=== PATIENT | male | born 1955 | race Caucasian/White ===

== ENCOUNTER 2017-04-11 13:49 | Inpatient (IN) | payer MEDICARE ==
--- NOTE | ~2017-04-11 | DS ---
Unit #: [id number] #: [id number] Patient: JAMES PEREIRA [id number] [address] [address] [id number] I MR#: [id number] NAME: JAMES PEREIRA ROOM: 242 Age: 62 Sex: M Admission Date: 04/11/2017 : 1955 Discharge Date: 04/14/2017 Attending Physician: Tererll Estevez M.D. Primary Care Physician: Amber Estevez Aprn DISCHARGE SUMMARY DISCHARGE DIAGNOSES Right second digit diabetic foot infection, diabetes, chronic pain, and hypertension. HOSPITAL COURSE The patient is a 62-year-old male admitted 04/21/2017 secondary to a diabetic foot infection. He was seen by the emergency department at [facility]. Apparently, he had been on treatment for a right second toe. Cellulitis that was failing to improve. Given and acute worsening the patient presented to the emergency department and was admitted for IV antibiotics. Cultures were obtained and podiatry consult was placed. The patient underwent MRI of his foot, which revealed cellulitis, but no osteomyelitis. Ultimately sent cultures half grown methicillin-susceptible Staph aureus. The patient's antibiotic regimen, which was vancomycin and Zosyn upon admission. Switched to Rocephin. The patient has been seen by Podiatry and recommended home on oral antibiotics. The patient should follow up with Dr. Duron, in one week. The patient should continue local wound care with antibiotic ointment, as well. DISCHARGE MEDICATIONS Bactroban to the toe topically twice a day, citalopram 20 mg daily, Januvia 50 mg daily, Janumet one p.o. daily, Lasix 40 mg p.o. b.i.d., metolazone 1 mg p.o. weekly, aspirin 81 mg daily, naproxen 500 mg p.o. b.i.d. as needed for [id number] pain, Covert 10/325, one p.o. daily as needed for pain, Methadose 20 mg p.o. five times daily, Prilosec 40 mg daily, potassium chloride 20 mEq daily, Ofev 150 mg daily, Bactrim DS one p.o. b.i.d. x7 days. FOLLOWUP As mentioned above. The patient should follow up Dr. Duron, within one week. Dictated by... Melanie Malik/ruiz TD: 04/19/2017 03:38 Unit #: [id number] #: [id number] Patient: JAMES PEREIRA JOB #: [id number] DISCHARGE SUMMARY Page 1 of 1 X Terrell Estevez MD X DISCHARGE SUMMARY
--- NOTE | ~2017-04-11 | MR59 ---
[facility] A Service of [facility] & [facility] RADIOLOGY TEXT RESULTS PATIENT: JAMES PEREIRA LOCATION: C2A 242-01 : 53 UNIT #: [id number] AGE: [address]: Terrell Estevez MD SEX: M ORDER DR: [id number] [place] [id number] [facility]. [place], [place] [address] [id number] I MR#: [id number] Acc #: [id number] NAME: JAMES PEREIRA. : 1955 SEX: M STUDY DATE/TIME: 04/12/2017 11:36 UNIT: [facility] ROOM: 242 STUDY DESCRIPTION: MR Foot WWo Contrast Rt Attending Physician: Terrell Estevez M.D. Ordering Physician: Alix Wade M.D. Primary Care Physician: Amber Estevez Aprn MRI CENTER REPORT This report is preliminary unless electronic signature is present. EXAM MRI right forefoot without and with IV contrast, 04/12/2017 HISTORY Order states right foot infection. Rule out osteo second toe. History sheet states pain and swelling second toe. Diabetic with a second toe wound, for 1 week. Ulcers on the plantar side of the second toe. Diabetic. Neuropathy. No related reported surgery. FINDINGS There is inflammation with enhancement of the subcutaneous space of the second toe compatible with cellulitis. There is no visible sizable wound; correlate clinically as reportedly a superficial wound is present. There is no evidence of osteomyelitis or septic arthritis. There is no fracture. There is mild arthritic change of the first MTP joint. There is diffuse severe muscle atrophy of the visualized foot most commonly seen in the setting of peripheral neuropathy in a diabetic. There is mild arthritic change of the midfoot dominating at the second and third tarsometatarsal joints and in the navicular-medial cuneiform articulation. IMPRESSION 1. Enhancing cellulitis of the second toe with no sizeable wound. 2. There is no evidence of osteomyelitis, abscess, or septic arthritis. 3. Arthritic changes of the midfoot and forefoot detailed above. 4. Severe diffuse muscle atrophy most likely on the basis of peripheral neuropathy in a diabetic. Dictated by... [facility] A Service of [facility] & [facility] RADIOLOGY TEXT RESULTS PATIENT: JAMES PEREIRA LOCATION: [place] [address] : 53 UNIT #: [id number] AGE: [address]: Terrell Estevez MD SEX: M ORDER DR: Soraida Chavez M.D. THIS IS AN ELECTRONICALLY VERIFIED REPORT Soraida Chavez M.D. at 04/13/2017 1:44 PM GINNY/bobby TD: 04/13/2017 09:38 JOB #: [id number] MRI CENTER REPORT Page 1 of 1 COPY
--- NOTE | ~2017-04-11 | CR127 ---
[facility] A Service of [facility] RADIOLOGY TEXT RESULTS PATIENT: JAMES PEREIRA LOCATION: [facility] 327-01 : 53 UNIT #: [id number] AGE: [address]: Terrell Estevez MD SEX: M ORDER DR: [id number] [place] [id number] I MR#: [id number] Acc #: [id number] NAME: JAMES PEREIRA : 1955 SEX: M STUDY DATE/TIME: 04/11/2017 14:12 UNIT: SEDOF ROOM: [facility] STUDY DESCRIPTION: CR Foot Complete Min 3 View Rt Attending Physician: Ellie Wagner M.D. Ordering Physician: Merry Isbell Primary Care Physician: Amber Estevez Aprn MEDICAL IMAGING REPORT This report is preliminary unless electronic signature is present. EXAM Right foot, 3 views HISTORY Second toe infection x1 week, second toe red, swollen and painful; patient diabetic. FINDINGS Three views of the right foot demonstrates soft tissue swelling about the forefoot and second toe. The second toe is not well profiled but subtle changes in the distal phalanx could reflect early osteomyelitis. No soft tissue gas. No fracture identified. Mild degenerative changes midfoot. Malalignment at the talonavicular joint and navicular cuneiform articulations could reflect early neuropathic change. Mild arthritic changes are also noted first MTP joint. IMPRESSION 1. Soft tissue swelling in the forefoot with focal soft tissue swelling about the second toe. The second toe is not well profiled but subtle change in the distal phalanx of the second toe could reflect early osteomyelitis. 2. Loss of the normal longitudinal arch of the foot with malalignment at the talonavicular joint and navicular cuneiform articulations could reflect early neuropathic arthropathy. Dictated by... Angela Henson M.D. THIS IS AN ELECTRONICALLY VERIFIED REPORT Angela Henson M.D. at 04/12/2017 12:32 PM JMS/psc [facility] A Service of [facility] RADIOLOGY TEXT RESULTS PATIENT: JAMES PEREIRA LOCATION: [facility] 327-01 : 53 UNIT #: [id number] AGE: [address]: Terrell Estevez MD SEX: M ORDER DR: TD: 04/12/2017 01:32 JOB #: [id number] MEDICAL IMAGING REPORT Page 1 of 1
--- NOTE | ~2017-04-11 | HP ---
Unit #: [id number] #: [id number] Patient: JAMES PEREIRA [id number] [address] [address] [id number] I MR#: [id number] NAME: JAMES PEREIRA ROOM: 327 Age: 62 Sex: M Admission Date: 04/11/2017 : 1955 Attending Physician: Ellie Wagner M.D. Primary Care Physician: Amber Estevez Aprn HISTORY AND PHYSICAL CHIEF COMPLAINT Right foot infection. HISTORY OF PRESENT ILLNESS This 62-year-old male with pulmonary fibrosis, COPD, neuropathy, AODM, was transferred from [facility] emergency department for cellulitis of the right foot, rule out osteomyelitis of the distal second toe. Intermittently over the past year the patient has required debridement and antibiotics of the second toe by Dr. Duron for cellulitis and what sounds to be some abscesses. He was last treated with what sounds to be doxycycline three months ago when he required debridement at that time. He was well until two days prior to admission when he developed increasing pain, redness over the second right toe into the right forefoot along with purulent drainage from the right second toe. He went to [facility] emergency department where he was given 900 mg of IV clindamycin, given a total of 60 mEq of potassium for hypokalemia and sent to this facility. A plain x-ray of the right foot shows soft tissue swelling of the right forefoot and second toe with possible osteomyelitis of the distal second toe. Also, evidence of early Charcot joint of the right foot. PAST MEDICAL HISTORY 1. Peripheral neuropathy. 2. AODM x5 months. 3. GERD. 4. Pulmonary fibrosis and COPD on oxygen followed by Dr. Gates. 5. Pulmonary hypertension. 6. Depression. 7. Pedal edema. 8. Chronic pain on methadone. 9. DJD. 10. Forty to fifty percent stenosis of the left carotid artery. 11. Partial bowel resection. 12. Cholecystectomy. 13. Ventral hernia repair. 14. C-spine surgery. SOCIAL HISTORY The patient lives with his , stopped smoking about two years ago, does not drink alcohol. FAMILY HISTORY Unit #: [id number] #: [id number] Patient: JAMES PEREIRA Cancer and heart disease. ALLERGIES Morphine. HOME MEDICATIONS 1. Naprosyn 500 mg t.i.d. 2. Lasix 40 mg b.i.d. 3. Potassium 20 mEq daily. 4. Methadone 20 mg five times a day. 5. [place] 7.5/325 mg daily as needed. 6. Prilosec 40 mg daily. 7. Janumet mg one tablet daily. 8. Celexa 20 mg daily. 9. Zaroxolyn one tablet each week. 10. Celexa 20 mg daily. 11. OFEV 150 mg daily. 12. Aspirin 81 mg daily. REVIEW OF SYSTEMS Notable for pain, swelling, redness of the right foot and second toe, diabetes, neuropathy, acid reflux, COPD, pulmonary fibrosis, depression, pedal edema, chronic pain, DJD, above-mentioned surgeries. All other systems were reviewed and are otherwise negative. PHYSICAL EXAMINATION GENERAL APPEARANCE: A mildly obese, 62-year-old male who currently is in no acute distress. EARLIER VITAL SIGNS: Temperature 98.1. Pulse 93. Respiration 16. Blood pressure 125/60. O2 saturation 94% on three liters of oxygen. HEENT: Eyes: PERRLA. Extraocular movements are intact. Pharynx edentulous. NECK: Supple without adenopathy or thyromegaly. Well-healed scar noted. CHEST: Clear. CARDIAC: Normal S1, S2 without murmur. ABDOMEN: Bowel sounds are present. Multiple well-healed scars. Mild right-sided abdominal tenderness without rebound or guarding. No hepatosplenomegaly. No masses. EXTREMITIES: Cellulitis of the distal right foot including the forefoot and into the right second toe with a superficial open area over the right second toe. Pedal pulse on the right is stronger than the left. NEUROLOGIC: The patient is awake, alert, oriented. Cranial nerves are intact. Equal strength throughout. DIAGNOSTIC STUDIES LABORATORY: Hematocrit 37.1, normal white count and platelet count. SMA-7: Potassium 2.6, chloride 90, CO2 36, glucose 113. IMAGING: X-ray show soft tissue of the right forefoot with some localized swelling of the second toe, rule out osteomyelitis of the distal phalanx. Early Charcot joint. ASSESSMENT 1. Right foot cellulitis, particularly the right toe, which has been recurrent into the right toe, rule out osteomyelitis of the second toe. 2. AODM. 3. Peripheral neuropathy with chronic pain. Unit #: [id number] #: [id number] Patient: JAMES PEREIRA 4. Hypokalemia on Lasix. 5. COPD and pulmonary fibrosis on oxygen and OFEV followed by Dr. Gates. PLAN 1. Vancomycin and Zosyn pending cultures. 2. Check MRI of the right distal foot. 3. Podiatry to see. The patient is followed by Dr. Duron. 4. Replace potassium. Check magnesium. 5. DVT prophylaxis. Dictated by Alix Wade M.D. AML/bd TD: 04/12/2017 06:04 JOB #: [id number] HISTORY AND PHYSICAL Page 1 of 1 X Alix Wade MD X HISTORY AND PHYSICAL
[~2017-04-11 13:49] MED LIST: ASPIRIN81 MG PO; CARVEDILOL3.125 MG PO; CELEXA PO; CELEXA20 MG PO; COLACE PO; COMBIVENT INH14.7 G1 IH; DULCOLAX10 MG/SUPP RC; ESCITALOPRAM OX20 MG PO; HYDROCODON-ACE1 EACH PO; KCL PO; KEFLEX500 M1 PO; LASIX PO; LORTAB 10-5001 EACH PO; LOTENSIN20 MG PO; METHADONE HCL10 MG PO; METHADOSE10 M1 PO; METHADOSE10 MG PO; MILK OF MAGNESIA PO; MIRALAX17 GM PO; NAPROSYN-EC500 M1 PO; NAPROSYN500 MG PO; NASONEX17 GM; NORCO 10-325 TA1 TAB PO; NORCO 7.5-3251 EACH PO; OMEPRAZOLE20 M2 PO; PHENERGAN25 MG PO; PRILOSEC40 MG PO; PROTONIX PO; SALINE60 M1 MC; SENOKOTXTRA17.2 MG PO; SYMBICORT INH; SYMBICORT80 INH; ZOFRAN 2 MG4 MG/2 ML IV
[2017-04-11] MEDS ORDERED: JANUVIA100 MG PO (14:08)
[2017-04-11] MEDS ORDERED: CELEXA10 MG PO (14:09)
[2017-04-11 15:50] LABS: BASOPHIL% 0.6 % (0-2.5); EOSINOPHIL# 0.2 X10e3 (0-0.7); EOSINOPHIL% 2.1 % (0.0-7.0); HEMATOCRIT 37.1 % (38.0-50.0); HEMOGLOBIN 12.4 gm/dL (13.0-16.0); LYMPHOCYTE# 1.6 X10e3 (1.0-3.5); LYMPHOCYTE% 21.6 % (17.0-45.0); MEAN CELL VOLUME 84.1 FL (83-96); MEAN CORPUSCULAR HEMOGLOBIN 28.1 PG (28-34); MEAN CORPUSCULAR HGB CONC 33.4 g/dL (30-36); MEAN PLATELET VOLUME 7.9 FL (6.5-11.5); MONOCYTE# 0.3 X10e3 (0-1.0); MONOCYTE% 4.4 % (3.0-12.0); NEUTROPHIL# 5.2 X10e3 (1.5-7.1); NEUTROPHIL% 71.3 % (40-75); PLATELET COUNT 171 X10e3 (140-420); RED BLOOD COUNT 4.41 X10e (3.90-5.60); RED CELL DISTRIBUTION WIDTH 17.1 % (11.0-15.5); WHITE BLOOD COUNT 7.3 X10e3 (4.0-10.5)
[2017-04-11 15:55] LABS: DIFF IND NO
[2017-04-11 16:22] LABS: CALCIUM SERUM 9.1 mg/dL (8.4-10.2); CREATININE SERUM 1.1 mg/dL (0.6-1.4); GLOM FILT RATE Estimated 70.6 mL/min (>60)
[2017-04-11 16:34] LABS: POTASSIUM 2.6 mmol/L (3.5-5.1)
[2017-04-11 22:44] LABS: ALBUMIN SERUM 3.7 g/dL (3.5-5.0); BILIRUBIN,TOTAL 0.6 mg/dL (0.2-2.0); CALCIUM SERUM 8.6 mg/dL (8.4-10.2); CREATININE SERUM 1.1 mg/dL (0.6-1.4); GLOM FILT RATE Estimated 70.6 mL/min (>60); POTASSIUM 3.3 mmol/L (3.5-5.1)
[2017-04-11] MEDS ORDERED: JANUMET 50-1,01 EACH PO (22:55)
[2017-04-11] MEDS ORDERED: METOLAZONE5 MG PO (23:03)
[2017-04-11] MEDS ORDERED: ASPIRIN81 M2 PO (23:06)
[2017-04-11] MEDS ORDERED: OFEV PO (23:06)
[2017-04-12 06:03] LABS: HEMATOCRIT 35.3 % (38.0-50.0); HEMOGLOBIN 11.5 gm/dL (13.0-16.0); MEAN CELL VOLUME 85.2 FL (83-96); MEAN CORPUSCULAR HEMOGLOBIN 27.7 PG (28-34); MEAN CORPUSCULAR HGB CONC 32.6 g/dL (30-36); MEAN PLATELET VOLUME 8.1 FL (6.5-11.5); RED BLOOD COUNT 4.14 X10e (3.90-5.60); RED CELL DISTRIBUTION WIDTH 16.9 % (11.0-15.5); WHITE BLOOD COUNT 6.8 X10e3 (4.0-10.5)
[2017-04-12 06:51] LABS: BUN/CREATININE RATIO 10.9; CALCIUM SERUM 8.7 mg/dL (8.4-10.2); CREATININE SERUM 1.1 mg/dL (0.6-1.4); GLOM FILT RATE Estimated 70.6 mL/min (>60); POTASSIUM 3.3 mmol/L (3.5-5.1)
[2017-04-13 04:32] LABS: HEMATOCRIT 37.1 % (38.0-50.0); MEAN CELL VOLUME 86.6 FL (83-96); MEAN CORPUSCULAR HEMOGLOBIN 27.9 PG (28-34); MEAN CORPUSCULAR HGB CONC 32.2 g/dL (30-36); MEAN PLATELET VOLUME 8.4 FL (6.5-11.5); RED BLOOD COUNT 4.29 X10e (3.90-5.60); RED CELL DISTRIBUTION WIDTH 17.3 % (11.0-15.5); WHITE BLOOD COUNT 6.7 X10e3 (4.0-10.5)
[2017-04-13 05:09] LABS: BUN/CREATININE RATIO 10.83; CALCIUM SERUM 8.7 mg/dL (8.4-10.2); CREATININE SERUM 1.2 mg/dL (0.6-1.4); GLOM FILT RATE Estimated 63.5 mL/min (>60); POTASSIUM 3.3 mmol/L (3.5-5.1)
[2017-04-14] MEDS ORDERED: BACTROBAN15 GM TOP (13:16)
[2017-04-14] MEDS ORDERED: BACTRIM DS TAB1 EACH PO (13:17)
[2017-04-14] MEDS ORDERED: HYDROCODON-ACE1 EAC5 PO (13:19)
== END 2017-04-14 14:21 | disposition home or self-care (01) | DRG 638 ==
LOC: SED 13:49 → CEDOF 17:22 → SEDOF 18:02 → CEDOF 18:02 → C3A PCU 20:43 → SEDOF 20:43 → C3A PCU 23:00 → CEDOF 23:00 → C2A 23:00 → SEDOF 23:00 → C3A PCU 04-12 07:08 → C2A 04-12 16:02
PROVIDERS: Internal Medicine; Physician Assistant
DX: E11.628 Type 2 diabetes mellitus with other skin complications (principal); L03.115 Cellulitis of right lower limb; I27.2 Other secondary pulmonary hypertension; J84.10 Pulmonary fibrosis, unspecified; J44.9 Chronic obstructive pulmonary disease, unspecified; I10 Essential (primary) hypertension; G89.29 Other chronic pain; E87.6 Hypokalemia; E11.42 Type 2 diabetes mellitus with diabetic polyneuropathy; K21.9 Gastro-esophageal reflux disease without esophagitis; F32.9 Major depressive disorder, single episode, unspecified; Z90.49 Acquired absence of other specified parts of digestive tract; Z87.891 Personal history of nicotine dependence; Z79.82 Long term (current) use of aspirin; Z80.9 Family history of malignant neoplasm, unspecified; Z82.49 Family history of ischemic heart disease and other diseases of the circulatory system; Z79.84 Long term (current) use of oral hypoglycemic drugs
CPT/HCPCS: 36415; 73630; 73720; 80048; 80053; 80202; 82947; 83735; 85025; 85027; 86140; 87070; 87077; 87186; 87205; 96365; 96367; 99285; A9577; J0696; J1650; J2543; J3370